=== PATIENT | male | born 1955 | race Caucasian/White ===

== ENCOUNTER 2018-03-31 11:21 | Outpatient (CLI) | payer BC | END 2018-03-31 11:22 | disposition home or self-care (01) | LOC: LAB.F 11:21 | PROVIDERS: ATTEND Internal Medicine Cardiovascular Disease | DX: D68.59 Other primary thrombophilia (principal) | CPT/HCPCS: 85610 ==

== ENCOUNTER 2018-04-12 09:52 | Outpatient (CLI) | payer BC | END 2018-04-12 09:53 | disposition home or self-care (01) | LOC: LAB.F 09:52 | PROVIDERS: ATTEND Internal Medicine Cardiovascular Disease | DX: D68.59 Other primary thrombophilia (principal) | CPT/HCPCS: 85610 ==

== ENCOUNTER 2018-05-18 13:31 | Outpatient (CLI) | payer BC | END 2018-05-18 13:32 | disposition home or self-care (01) | LOC: LAB.F 13:31 | PROVIDERS: ATTEND Internal Medicine Cardiovascular Disease | DX: D68.59 Other primary thrombophilia (principal) | CPT/HCPCS: 85610 ==

== ENCOUNTER 2018-06-08 10:18 | Outpatient (CLI) | payer BC | END 2018-06-08 10:19 | disposition home or self-care (01) | LOC: LAB.F 10:18 | PROVIDERS: ATTEND Internal Medicine Cardiovascular Disease | DX: D68.59 Other primary thrombophilia (principal) | CPT/HCPCS: 85610 ==

== ENCOUNTER 2018-08-23 15:27 | Outpatient (CLI) | payer BC | END 2018-08-23 15:28 | disposition home or self-care (01) | LOC: LAB.F 15:27 | PROVIDERS: ATTEND Internal Medicine Cardiovascular Disease | DX: D68.59 Other primary thrombophilia (principal) | CPT/HCPCS: 85610 ==

== ENCOUNTER 2018-10-31 13:12 | Outpatient (CLI) | payer BC | END 2018-10-31 13:13 | disposition home or self-care (01) | LOC: LAB.F 13:12 | PROVIDERS: ATTEND Internal Medicine Cardiovascular Disease | DX: D68.59 Other primary thrombophilia (principal) | CPT/HCPCS: 85610 ==

== ENCOUNTER 2019-01-09 15:13 | Outpatient (CLI) | payer BC | END 2019-01-09 15:14 | disposition home or self-care (01) | LOC: LAB.F 15:13 | PROVIDERS: ATTEND Internal Medicine Cardiovascular Disease | DX: D68.59 Other primary thrombophilia (principal) | CPT/HCPCS: 36415; 85610 ==